=== PATIENT | female | born 1995 | race Caucasian/White ===

== ENCOUNTER 2020-04-24 18:13 | Emergency (ER) | payer OTHER, SELFPAY ==
[~2020-04-24] VITALS: Ht 157.5 cm; Wt 118.8 kg
[2020-04-24 18:30] VITALS: BP 136/66
[2020-04-24] MEDS ORDERED: ACETAMINOPHEN EXTRA STRENGTH 500 MG TAB PO ONE (19:30)
--- NOTE | 2020-04-24 19:44 | NUR ---
PT MEDICATED WITH TYLENOL 1G PO TOLERATED WELL. NADR
--- NOTE | 2020-04-24 20:48 | NUR ---
COVID SWAB COLLECTED AND SENT TO LAB.
[2020-04-24 21:07] VITALS: BP 129/95
--- NOTE | 2020-04-24 23:21 | NUR ---
Patient discharged with v/s stable. Written and verbal after care instructions given and explained. Patient alert, oriented and verbalized understanding of instructions. Ambulatory with steady gait. All questions addressed prior to discharge. ID band removed. Patient advised to follow up with PMD. Rx of NAPROSYN, ALBUTEROL, GUAIFENESIN given. Patient educated on indication of medication including possible reaction and side effects. Opportunity to ask questions provided and answered.
--- NOTE | 2020-04-28 20:46 | NUR ---
PT POSITIVE FOR COVID-19. RESULTS-SENT TO INFECTION CONTROL AND HOUSE SUP
== END 2020-04-24 23:21 | disposition home or self-care (01) ==
LOC: EEVIPCON 18:13 → MED 18:13
DX: U07.1 COVID-19 (principal); J20.9 Acute bronchitis, unspecified; R05 Cough
CPT/HCPCS: 71045; 99284; Q0092; U0003